=== PATIENT | male | born 1955 | race African-American/Black ===

== ENCOUNTER 2016-07-21 09:24 | Outpatient (CLI) | payer OTHER ==
[2016-07-21 09:41] LABS: BASOPHILS # (AUTO) 0.1 K/uL (0-0.2); EOSINOPHILS # (AUTO) 0.1 K/ul (0.0-0.7); EOSINOPHILS % (AUTO) 0.8 % (0.0-7.0); HEMATOCRIT 38.5 % (42.0-52.0); HEMOGLOBIN 10.6 g/dl (14.0-18.0); IMMATURE GRANULOCYTE % (AUTO) 0.6 % (0.0-5.0); LYMPHOCYTES # (AUTO) 0.3 K/uL (0.60-3.4); LYMPHOCYTES % (AUTO) 3.2 (10.0-50.0); MEAN CORPUSCULAR HEMOGLOBIN 21.5 pg (27.0-31.0); MEAN CORPUSCULAR HGB CONC 27.5 (31.8-35.4); MEAN CORPUSCULAR VOLUME 78.1 fl (80.0-94.0); MONOCYTES % (AUTO) 10.2 (0-10); NEUTROPHILS # (AUTO) 7.9 K/ul (2.0-6.9); NEUTROPHILS % (AUTO) 84.2; PLATELET COUNT 303 10^3/uL (140-440); RED BLOOD COUNT 4.93 10^6/ul (4.70-6.10); WHITE BLOOD COUNT 9.32 K/ul (4.2-10.2)
[2016-07-21 09:50] LABS: ANISOCYTOSIS 2+ (NOT PRESENT)
[2016-07-21 10:23] LABS: ALBUMIN 3.7 g/dL (3.4-5.0); ANION GAP 14.8; BILIRUBIN,TOTAL 0.63 mg/dL (0.00-1.20); BUN/CREATININE RATIO 15.81; CALCIUM 9.4 mg/dL (8.2-10.2); CHOL/HDL RATIO 3.1 (4.5-6.4); CREATININE 1.96 mg/dL (0.60-1.10); FERRITIN 65.1 ng/mL (21.81-274.66); PHOSPHORUS 3.3 mg/dL (2.3-3.7); POTASSIUM 3.8 mmol/L (3.5-5.1); TOTAL PROTEIN 7.4 g/dL (5.8-8.1)
== END 2016-07-21 09:25 | disposition home or self-care (01) ==
LOC: LAB 09:24
PROVIDERS: ATTEND Internal Medicine Nephrology
DX: Z94.0 Kidney transplant status (principal); Z79.899 Other long term (current) drug therapy; D50.8 Other iron deficiency anemias; E78.5 Hyperlipidemia, unspecified; E10.65 Type 1 diabetes mellitus with hyperglycemia; D51.9 Vitamin B12 deficiency anemia, unspecified
CPT/HCPCS: 36415; 80053; 80061; 80197; 82728; 83036; 83540; 83550; 84100; 85008; 85025

== ENCOUNTER 2016-08-18 12:14 | Outpatient (CLI) ==
[2016-08-18 12:38] LABS: BASOPHILS # (AUTO) 0.1 K/uL (0-0.2); BASOPHILS % (AUTO) 0.7 % (0.0-3.0); EOSINOPHILS % (AUTO) 0.1 % (0.0-7.0); HEMATOCRIT 44.9 % (42.0-52.0); IMMATURE GRANULOCYTE % (AUTO) 0.5 % (0.0-5.0); LYMPHOCYTES # (AUTO) 0.3 K/uL (0.60-3.4); LYMPHOCYTES % (AUTO) 3.8 (10.0-50.0); MEAN CORPUSCULAR HEMOGLOBIN 23.8 pg (27.0-31.0); MEAN CORPUSCULAR VOLUME 82.1 fl (80.0-94.0); MONOCYTES # (AUTO) 0.7 K/uL (0.4-2.0); MONOCYTES % (AUTO) 9.1 (0-10); NEUTROPHILS # (AUTO) 6.4 K/ul (2.0-6.9); NEUTROPHILS % (AUTO) 85.8; PLATELET COUNT 225 10^3/uL (140-440); RED BLOOD COUNT 5.47 10^6/ul (4.70-6.10); WHITE BLOOD COUNT 7.46 K/ul (4.2-10.2)
[2016-08-18 12:49] LABS: ANISOCYTOSIS 1+ (NOT PRESENT)
[2016-08-18 12:57] LABS: ALBUMIN 3.7 g/dL (3.4-5.0); ANION GAP 16.5; CALCIUM 8.5 mg/dL (8.2-10.2); PHOSPHORUS 2.3 mg/dL (2.3-3.7); POTASSIUM 3.5 mmol/L (3.5-5.1)
== END 2016-08-18 12:15 | disposition home or self-care (01) ==
LOC: LAB 12:14
PROVIDERS: ATTEND Internal Medicine Nephrology
DX: Z94.0 Kidney transplant status (principal); Z79.899 Other long term (current) drug therapy; D50.8 Other iron deficiency anemias; E78.5 Hyperlipidemia, unspecified; E10.65 Type 1 diabetes mellitus with hyperglycemia; D51.9 Vitamin B12 deficiency anemia, unspecified
CPT/HCPCS: 36415; 80069; 85008; 85025

== ENCOUNTER 2016-09-15 10:53 | Outpatient (CLI) ==
[2016-09-15 11:25] LABS: BASOPHILS # (AUTO) 0.1 K/uL (0-0.2); BASOPHILS % (AUTO) 0.7 % (0.0-3.0); EOSINOPHILS # (AUTO) 0.1 K/ul (0.0-0.7); EOSINOPHILS % (AUTO) 1.4 % (0.0-7.0); HEMATOCRIT 52.7 % (42.0-52.0); HEMOGLOBIN 16.2 g/dl (14.0-18.0); IMMATURE GRANULOCYTE % (AUTO) 0.9 % (0.0-5.0); LYMPHOCYTES # (AUTO) 0.9 K/uL (0.60-3.4); LYMPHOCYTES % (AUTO) 8.3 (10.0-50.0); MEAN CORPUSCULAR HEMOGLOBIN 23.9 pg (27.0-31.0); MEAN CORPUSCULAR HGB CONC 30.7 (31.8-35.4); MEAN CORPUSCULAR VOLUME 77.8 fl (80.0-94.0); MONOCYTES # (AUTO) 1.1 K/uL (0.4-2.0); MONOCYTES % (AUTO) 10.2 (0-10); NEUTROPHILS # (AUTO) 8.1 K/ul (2.0-6.9); NEUTROPHILS % (AUTO) 78.5; PLATELET COUNT 237 10^3/uL (140-440); RED BLOOD COUNT 6.77 10^6/ul (4.70-6.10)
[2016-09-15 11:50] LABS: ALBUMIN 4.2 g/dL (3.4-5.0); ANION GAP 17.8; BUN/CREATININE RATIO 19.75; CREATININE 3.29 mg/dL (0.60-1.10); PHOSPHORUS 4.1 mg/dL (2.3-3.7); POTASSIUM 3.8 mmol/L (3.5-5.1)
[2016-09-15 12:38] LABS: CALCIUM 13.5 mg/dL (8.2-10.2)
== END 2016-09-15 10:54 | disposition home or self-care (01) ==
LOC: LAB 10:53
PROVIDERS: ATTEND Internal Medicine Nephrology
DX: Z94.0 Kidney transplant status (principal); Z79.899 Other long term (current) drug therapy; E78.5 Hyperlipidemia, unspecified; E10.65 Type 1 diabetes mellitus with hyperglycemia; D51.9 Vitamin B12 deficiency anemia, unspecified; D50.8 Other iron deficiency anemias
CPT/HCPCS: 36415; 80069; 85025

== ENCOUNTER 2016-10-14 13:51 | Emergency (ER) ==
[2016-10-14 13:57] VITALS: BP 149/61; TEMP 97.5; BMI 34.7
--- NOTE | 2016-10-14 14:09 | ED.PDOC ---
General ED Provider: Dr. DARLING TODD JR Chief Complaint: Hip Pain/Injury Stated Complaint: patient states his right hip had been hurting and then he went for a walk and it seemed to aggrevate the pain. [ End ]4days 97.5 69 20 94 149/61 9/10 Time Seen by Physician: 14:09 Mode of Arrival: Walk-In Information Source: Patient Exam Limitations: No limitations Primary Care Provider: EDUARDO BRYANT Nursing and Triage Documentation Reviewed and Agree: No Review of Systems - Review Of Systems Constitutional: Reports: No symptoms Eyes: Reports: No symptoms Ears, Nose, Mouth, Throat: Reports: No symptoms Respiratory: Reports: No symptoms Cardiac: Reports: No symptoms GI: Reports: No symptoms : Reports: No symptoms Musculoskeletal: Reports: Joint pain, Muscle pain Skin: Reports: No symptoms Neurological: Reports: No symptoms Endocrine: Reports: No symptoms Hematologic/Lymphatic: Reports: No symptoms All Other Systems: Other Past Medical History - Past Medical History Endocrine: Reports: DM 2 Cardiovascular: Reports: Hypertension, Other ('heart valve issue" regurgitation) Respiratory: Reports: None Hematological: Reports: None Gastrointestinal: Reports: None Genitourinary: Reports: CKD, Other (history of dialysis renal transplant ) Neuro/Psych: Reports: None Musculoskeletal: Reports: None Cancer: Reports: None - Surgical History General Surgical History: Reports: Other - Family History Family History: Reports: Unknown - Social History Smoking Status: Current every day smoker Hx Substance Use: No Alcohol Screening: None Physical Exam - Physical Exam Appearance: Well-appearing Pain Distress: Moderate Neck: Supple Respiratory: Airway patent Cardiovascular: RRR Musculoskeletal: Normal strength, ROM intact, No calf tenderness (tender anterior hip joint and distal arrea consistent with flexor strain not bone problems due to dialysis), Edema (trace) Skin: Warm, Dry, Normal color Neurological: Sensation intact, Motor intact, Reflexes intact, Cranial nerves intact, Alert, Oriented Psychiatric: Affect appropriate, Mood appropriate Critical Care Note - Critical Care Note Total Time (mins): 0 Course - Course Orders, Labs, Meds: Orders Category Date Time Status HIP, RIGHT 2 VIEWS Stat RADS 10/14/16 14:24 Completed Vital Signs: Temp Pulse Resp BP Pulse Ox 10/14/16 13:51 97.5 F L 69 20 149/61 H 94 L Departure - Departure Time of Disposition: 15:17 Disposition: HOME SELF-CARE Discharge Problem: Strain of right hip adductor muscle Qualifiers: Encounter type: initial encounter Qualifier Code: (S76.011A) Strain of muscle, fascia and tendon of right hip, initial encounter Instructions: Hip Sprain (ED) Condition: Good Pt referred to PMD for follow-up: Yes Additional Instructions: gentle range of motion twice a day limit weight on hip for three days recommend NSAIDS for pain 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 Diggs sparingly as needed for pain not controlled by Tylenol recommend increase stool softener if using Diggs Prescriptions: Hydrocodone Bit/Acetaminophen [Diggs 5-325] 1 - 2 tab PO Q6HR PRN #12 tablet PRN Reason: pain Allergies/Adverse Reactions: Allergies No Known Allergies Allergy (Unverified 10/14/16 13:57) Home Medications: Ambulatory Orders Atorvastatin Calcium 80 mg PO BEDTIME 10/14/16 Belatacept [Nulojix] 250 mg IV MONTHLY 10/14/16 Bumetanide 4 tab PO BID 10/14/16 Calcitriol 3 cap PO BID 10/14/16 Cholecalciferol (Vitamin D3) [Vitamin D3] 2,000 unit PO DAILY 10/14/16 Glipizide [Glipizide ER] 5 mg PO DAILY 10/14/16 Hydrocodone Bit/Acetaminophen [Diggs 5-325] 1 - 2 tab PO Q6HR PRN #12 tablet Linagliptin [Tradjenta] 5 mg PO DAILY 10/14/16 Metolazone 2.5 mg PO EVERY OTHER DAY 10/14/16 Metoprolol Tartrate [Lopressor] 25 mg PO BID 10/14/16 Mycophenolate Sodium [Mycophenolic Acid] 2 tab PO BID 10/14/16 Omeprazole [Prilosec] 20 mg PO BIDAC 10/14/16 Prednisone 5 mg PO DAILYWM 10/14/16 Sulfamethoxazole/Trimethoprim [Sulfamethoxazole-Tmp Ds Tablet] 1 each PO BEDTIME 10/14/16
--- NOTE | 2016-10-14 15:12 | DI ---
EXAM: Two views of the right hip HISTORY: New pain for 4 days. COMPARISON: None FINDINGS: There is significant narrowing and mild osteophyte formation of the right hip joint space. Small osteophytes are present. There is no cortical irregularity or displaced fracture identified . Limited views of the osseous structures of the pelvis are unremarkable. There are calcifications of the vas deferens. The soft tissues are normal. IMPRESSION: Degenerative disease of the right hip with no displaced fracture or dislocation.
== END 2016-10-14 15:59 | disposition home or self-care (01) ==
LOC: ED 13:51
DX: S76.011A Strain of muscle, fascia and tendon of right hip, initial encounter (principal); F17.210 Nicotine dependence, cigarettes, uncomplicated
CPT/HCPCS: 99283

== ENCOUNTER 2016-10-16 11:20 | Outpatient (CLI) ==
[2016-10-16 12:17] LABS: ALBUMIN 3.5 g/dL (3.4-5.0); ANION GAP 17.3; BUN/CREATININE RATIO 18.75; CALCIUM 11.5 mg/dL (8.2-10.2); CREATININE 2.24 mg/dL (0.60-1.10); PHOSPHORUS 3.2 mg/dL (2.3-3.7); POTASSIUM 3.3 mmol/L (3.5-5.1)
[2016-10-16 12:18] LABS: BASOPHILS # (AUTO) 0.1 K/uL (0-0.2); BASOPHILS % (AUTO) 0.8 % (0.0-3.0); EOSINOPHILS # (AUTO) 0.1 K/ul (0.0-0.7); EOSINOPHILS % (AUTO) 1.2 % (0.0-7.0); HEMATOCRIT 46.3 % (42.0-52.0); HEMOGLOBIN 14.6 g/dl (14.0-18.0); IMMATURE GRANULOCYTE % (AUTO) 0.8 % (0.0-5.0); LYMPHOCYTES # (AUTO) 0.5 K/uL (0.60-3.4); LYMPHOCYTES % (AUTO) 7.4 (10.0-50.0); MEAN CORPUSCULAR HEMOGLOBIN 24.3 pg (27.0-31.0); MEAN CORPUSCULAR HGB CONC 31.5 (31.8-35.4); MONOCYTES # (AUTO) 0.7 K/uL (0.4-2.0); MONOCYTES % (AUTO) 10.7 (0-10); NEUTROPHILS # (AUTO) 5.3 K/ul (2.0-6.9); NEUTROPHILS % (AUTO) 79.1; PLATELET COUNT 234 10^3/uL (140-440); RED BLOOD COUNT 6.01 10^6/ul (4.70-6.10); WHITE BLOOD COUNT 6.65 K/ul (4.2-10.2)
== END 2016-10-16 11:21 | disposition home or self-care (01) ==
LOC: LAB 11:20
PROVIDERS: ATTEND Internal Medicine Nephrology
DX: Z94.0 Kidney transplant status (principal); Z79.899 Other long term (current) drug therapy; E78.5 Hyperlipidemia, unspecified; E10.65 Type 1 diabetes mellitus with hyperglycemia; D51.9 Vitamin B12 deficiency anemia, unspecified; D50.8 Other iron deficiency anemias
CPT/HCPCS: 36415; 80069; 83970; 85025

== ENCOUNTER 2016-11-14 10:15 | Outpatient (CLI) ==
[2016-11-14 10:40] LABS: BASOPHILS # (AUTO) 0.1 K/uL (0-0.2); BASOPHILS % (AUTO) 0.9 % (0.0-3.0); EOSINOPHILS # (AUTO) 0.1 K/ul (0.0-0.7); EOSINOPHILS % (AUTO) 0.9 % (0.0-7.0); HEMATOCRIT 47.2 % (42.0-52.0); HEMOGLOBIN 14.6 g/dl (14.0-18.0); IMMATURE GRANULOCYTE % (AUTO) 1.6 % (0.0-5.0); LYMPHOCYTES # (AUTO) 0.6 K/uL (0.60-3.4); LYMPHOCYTES % (AUTO) 8.9 (10.0-50.0); MEAN CORPUSCULAR HEMOGLOBIN 23.7 pg (27.0-31.0); MEAN CORPUSCULAR HGB CONC 30.9 (31.8-35.4); MEAN CORPUSCULAR VOLUME 76.5 fl (80.0-94.0); MONOCYTES # (AUTO) 0.7 K/uL (0.4-2.0); MONOCYTES % (AUTO) 10.7 (0-10); NEUTROPHILS # (AUTO) 5.2 K/ul (2.0-6.9); PLATELET COUNT 254 10^3/uL (140-440); RED BLOOD COUNT 6.17 10^6/ul (4.70-6.10); WHITE BLOOD COUNT 6.71 K/ul (4.2-10.2)
[2016-11-14 10:49] LABS: ANISOCYTOSIS 1+ (NOT PRESENT)
[2016-11-14 11:18] LABS: ALBUMIN 3.5 g/dL (3.4-5.0); ANION GAP 14.4; BUN/CREATININE RATIO 18.18; CALCIUM 11.9 mg/dL (8.2-10.2); CREATININE 2.31 mg/dL (0.60-1.10); FERRITIN 127.42 ng/mL (21.81-274.66); PHOSPHORUS 2.8 mg/dL (2.3-3.7); POTASSIUM 3.4 mmol/L (3.5-5.1)
== END 2016-11-14 10:16 ==
LOC: LAB 10:15
PROVIDERS: ATTEND Internal Medicine Nephrology
DX: Z94.0 Kidney transplant status (principal); Z79.899 Other long term (current) drug therapy; E10.65 Type 1 diabetes mellitus with hyperglycemia; E78.5 Hyperlipidemia, unspecified; D50.8 Other iron deficiency anemias; D51.9 Vitamin B12 deficiency anemia, unspecified
CPT/HCPCS: 36415; 80069; 82728; 83540; 83550; 85008; 85025

== ENCOUNTER 2016-12-26 16:52 | Outpatient (CLI) ==
[2016-12-26 17:21] LABS: BASOPHILS % (AUTO) 0.4 % (0.0-3.0); EOSINOPHILS % (AUTO) 0.4 % (0.0-7.0); HEMATOCRIT 30.7 % (42.0-52.0); HEMOGLOBIN 9.5 g/dl (14.0-18.0); IMMATURE GRANULOCYTE % (AUTO) 1.8 % (0.0-5.0); LYMPHOCYTES # (AUTO) 0.5 K/uL (0.60-3.4); LYMPHOCYTES % (AUTO) 5.4 (10.0-50.0); MEAN CORPUSCULAR HEMOGLOBIN 27.1 pg (27.0-31.0); MEAN CORPUSCULAR HGB CONC 30.9 (31.8-35.4); MEAN CORPUSCULAR VOLUME 87.5 fl (80.0-94.0); MONOCYTES # (AUTO) 1.3 K/uL (0.4-2.0); NEUTROPHILS # (AUTO) 7.1 K/ul (2.0-6.9); PLATELET COUNT 207 10^3/uL (140-440); RED BLOOD COUNT 3.51 10^6/ul (4.70-6.10)
[2016-12-26 17:40] LABS: ALBUMIN 2.5 g/dL (3.4-5.0); ALBUMIN/GLOBULIN RATIO 0.68; ANION GAP 18.3; BILIRUBIN,TOTAL 0.71 mg/dL (0.00-1.20); BUN/CREATININE RATIO 11.93; CALCIUM 7.7 mg/dL (8.2-10.2); CREATININE 1.76 mg/dL (0.60-1.10); POTASSIUM 3.3 mmol/L (3.5-5.1); TOTAL PROTEIN 6.2 g/dL (5.8-8.1)
== END 2016-12-26 16:53 | disposition home or self-care (01) ==
LOC: NONPT 16:52
DX: I13.10 Hypertensive heart and chronic kidney disease without heart failure, with stage 1 through stage 4 chronic kidney disease, or unspecified chronic kidney disease (principal); E11.22 Type 2 diabetes mellitus with diabetic chronic kidney disease; N18.9 Chronic kidney disease, unspecified; I35.9 Nonrheumatic aortic valve disorder, unspecified
CPT/HCPCS: 80053; 83880; 85025

== ENCOUNTER 2017-01-14 15:16 | Outpatient (CLI) ==
[2017-01-14 15:41] LABS: ANION GAP 20.6; BUN/CREATININE RATIO 15.35; CALCIUM 10.9 mg/dL (8.2-10.2); CREATININE 2.41 mg/dL (0.60-1.10); POTASSIUM 4.6 mmol/L (3.5-5.1)
== END 2017-01-14 15:17 | disposition home or self-care (01) ==
LOC: NONPT 15:16
PROVIDERS: ATTEND Internal Medicine Nephrology
DX: Z94.0 Kidney transplant status (principal); Z95.1 Presence of aortocoronary bypass graft
CPT/HCPCS: 80048

== ENCOUNTER 2017-02-16 11:49 | Outpatient (CLI) ==
[2017-02-16 12:24] LABS: BASOPHILS # (AUTO) 0.1 K/uL (0-0.2); BASOPHILS % (AUTO) 0.7 % (0.0-3.0); EOSINOPHILS # (AUTO) 0.1 K/ul (0.0-0.7); EOSINOPHILS % (AUTO) 1.7 % (0.0-7.0); HEMOGLOBIN 10.7 g/dl (14.0-18.0); IMMATURE GRANULOCYTE % (AUTO) 0.9 % (0.0-5.0); LYMPHOCYTES # (AUTO) 0.7 K/uL (0.60-3.4); LYMPHOCYTES % (AUTO) 9.3 (10.0-50.0); MEAN CORPUSCULAR HEMOGLOBIN 22.9 pg (27.0-31.0); MEAN CORPUSCULAR HGB CONC 29.7 (31.8-35.4); MEAN CORPUSCULAR VOLUME 76.9 fl (80.0-94.0); MONOCYTES # (AUTO) 0.8 K/uL (0.4-2.0); MONOCYTES % (AUTO) 10.8 (0-10); NEUTROPHILS # (AUTO) 5.7 K/ul (2.0-6.9); NEUTROPHILS % (AUTO) 76.6; PLATELET COUNT 325 10^3/uL (140-440); RED BLOOD COUNT 4.68 10^6/ul (4.70-6.10); WHITE BLOOD COUNT 7.43 K/ul (4.2-10.2)
[2017-02-16 12:38] LABS: ALBUMIN 3.2 g/dL (3.4-5.0); ANION GAP 16.6; BUN/CREATININE RATIO 14.46; CALCIUM 6.3 mg/dL (8.2-10.2); CREATININE 1.59 mg/dL (0.60-1.10); PHOSPHORUS 4.5 mg/dL (2.3-3.7); POTASSIUM 3.6 mmol/L (3.5-5.1)
== END 2017-02-16 11:50 | disposition home or self-care (01) ==
LOC: LAB 11:49
PROVIDERS: ATTEND Internal Medicine Nephrology
DX: Z94.0 Kidney transplant status (principal); Z79.899 Other long term (current) drug therapy; D50.8 Other iron deficiency anemias; E78.5 Hyperlipidemia, unspecified; E10.65 Type 1 diabetes mellitus with hyperglycemia; D51.9 Vitamin B12 deficiency anemia, unspecified
CPT/HCPCS: 36415; 80069; 85025

== ENCOUNTER 2017-02-26 14:14 | Outpatient (RCR) ==
[2017-02-26 15:20] VITALS: TEMP 98.1; BMI 31.4
[2017-03-20 14:04] VITALS: BP 128/58
== END 2017-03-21 ==
LOC: CAR.REHAB 14:14
PROVIDERS: ATTEND Internal Medicine Cardiovascular Disease
DX: Z95.2 Presence of prosthetic heart valve (principal)
CPT/HCPCS: 93798

== ENCOUNTER 2017-03-18 12:12 | Outpatient (CLI) ==
[2017-03-18 12:38] LABS: BASOPHILS # (AUTO) 0.1 K/uL (0-0.2); BASOPHILS % (AUTO) 0.9 % (0.0-3.0); EOSINOPHILS # (AUTO) 0.1 K/ul (0.0-0.7); EOSINOPHILS % (AUTO) 1.3 % (0.0-7.0); HEMATOCRIT 37.5 % (42.0-52.0); IMMATURE GRANULOCYTE % (AUTO) 0.5 % (0.0-5.0); LYMPHOCYTES # (AUTO) 0.6 K/uL (0.60-3.4); LYMPHOCYTES % (AUTO) 7.1 (10.0-50.0); MEAN CORPUSCULAR HEMOGLOBIN 21.3 pg (27.0-31.0); MEAN CORPUSCULAR HGB CONC 29.3 (31.8-35.4); MEAN CORPUSCULAR VOLUME 72.5 fl (80.0-94.0); MONOCYTES # (AUTO) 0.6 K/uL (0.4-2.0); MONOCYTES % (AUTO) 7.7 (0-10); NEUTROPHILS # (AUTO) 6.5 K/ul (2.0-6.9); NEUTROPHILS % (AUTO) 82.5; PLATELET COUNT 310 10^3/uL (140-440); RED BLOOD COUNT 5.17 10^6/ul (4.70-6.10)
[2017-03-18 12:50] LABS: ANISOCYTOSIS 2+ (NOT PRESENT); HYPOCHROMASIA 1+ (NOT PRESENT); MICROCYTOSIS 1+ (NOT PRESENT)
[2017-03-18 12:55] LABS: ALBUMIN 3.2 g/dL (3.4-5.0); ANION GAP 13.8; BUN/CREATININE RATIO 12.72; CALCIUM 8.4 mg/dL (8.2-10.2); CREATININE 1.65 mg/dL (0.60-1.10); POTASSIUM 3.8 mmol/L (3.5-5.1)
[2017-03-19 12:21] LABS: PHOSPHORUS 2.6 mg/dL (2.3-3.7)
== END 2017-03-18 12:13 | disposition home or self-care (01) ==
LOC: LAB 12:12
PROVIDERS: ATTEND Internal Medicine Nephrology
DX: Z94.0 Kidney transplant status (principal); Z79.899 Other long term (current) drug therapy; B25.9 Cytomegaloviral disease, unspecified; D50.8 Other iron deficiency anemias; E78.5 Hyperlipidemia, unspecified; E10.65 Type 1 diabetes mellitus with hyperglycemia; D51.9 Vitamin B12 deficiency anemia, unspecified
CPT/HCPCS: 36415; 80053; 80069; 85008; 85025

== ENCOUNTER 2017-04-22 10:57 | Outpatient (CLI) | payer OTHER ==
[2017-04-22 11:25] LABS: BASOPHILS # (AUTO) 0.1 K/uL (0-0.2); EOSINOPHILS # (AUTO) 0.1 K/ul (0.0-0.7); EOSINOPHILS % (AUTO) 1.7 % (0.0-7.0); HEMATOCRIT 33.4 % (42.0-52.0); HEMOGLOBIN 9.4 g/dl (14.0-18.0); IMMATURE GRANULOCYTE % (AUTO) 0.6 % (0.0-5.0); LYMPHOCYTES # (AUTO) 0.6 K/uL (0.60-3.4); LYMPHOCYTES % (AUTO) 8.2 (10.0-50.0); MEAN CORPUSCULAR HEMOGLOBIN 19.4 pg (27.0-31.0); MEAN CORPUSCULAR HGB CONC 28.1 (31.8-35.4); MEAN CORPUSCULAR VOLUME 68.9 fl (80.0-94.0); MONOCYTES # (AUTO) 0.8 K/uL (0.4-2.0); MONOCYTES % (AUTO) 11.1 (0-10); NEUTROPHILS # (AUTO) 5.4 K/ul (2.0-6.9); NEUTROPHILS % (AUTO) 77.4; PLATELET COUNT 327 10^3/uL (140-440); RED BLOOD COUNT 4.85 10^6/ul (4.70-6.10); WHITE BLOOD COUNT 6.94 K/ul (4.2-10.2)
[2017-04-22 11:49] LABS: ANISOCYTOSIS 2+ (NOT PRESENT); HYPOCHROMASIA 2+ (NOT PRESENT); MICROCYTOSIS 2+ (NOT PRESENT)
[2017-04-22 12:01] LABS: ALBUMIN 3.4 g/dL (3.4-5.0); ALBUMIN/GLOBULIN RATIO 0.77; ANION GAP 13.7; BILIRUBIN,TOTAL 0.64 mg/dL (0.00-1.20); BUN/CREATININE RATIO 12.72; CALCIUM 8.5 mg/dL (8.2-10.2); CHOL/HDL RATIO 3.2 (4.5-6.4); CREATININE 1.65 mg/dL (0.60-1.10); FERRITIN 15.79 ng/mL (21.81-274.66); PHOSPHORUS 3.2 mg/dL (2.3-3.7); POTASSIUM 3.7 mmol/L (3.5-5.1); TOTAL PROTEIN 7.8 g/dL (5.8-8.1)
== END 2017-04-22 10:58 | disposition home or self-care (01) ==
LOC: LAB 10:57
PROVIDERS: ATTEND Internal Medicine Nephrology
DX: Z94.0 Kidney transplant status (principal); Z79.899 Other long term (current) drug therapy; D50.8 Other iron deficiency anemias; E78.5 Hyperlipidemia, unspecified; E10.65 Type 1 diabetes mellitus with hyperglycemia; D51.9 Vitamin B12 deficiency anemia, unspecified
CPT/HCPCS: 36415; 80053; 80061; 80197; 82728; 83036; 83540; 83550; 84100; 85008; 85025

== ENCOUNTER 2017-05-12 11:28 | Outpatient (CLI) ==
[2017-05-12 11:56] LABS: BASOPHILS # (AUTO) 0.1 K/uL (0-0.2); BASOPHILS % (AUTO) 0.5 % (0.0-3.0); EOSINOPHILS # (AUTO) 0.1 K/ul (0.0-0.7); EOSINOPHILS % (AUTO) 1.1 % (0.0-7.0); HEMATOCRIT 34.3 % (42.0-52.0); HEMOGLOBIN 9.7 g/dl (14.0-18.0); IMMATURE GRANULOCYTE % (AUTO) 0.8 % (0.0-5.0); LYMPHOCYTES # (AUTO) 0.6 K/uL (0.60-3.4); LYMPHOCYTES % (AUTO) 6.2 (10.0-50.0); MEAN CORPUSCULAR HEMOGLOBIN 21.8 pg (27.0-31.0); MEAN CORPUSCULAR HGB CONC 28.3 (31.8-35.4); MEAN CORPUSCULAR VOLUME 77.1 fl (80.0-94.0); MONOCYTES # (AUTO) 1.1 K/uL (0.4-2.0); MONOCYTES % (AUTO) 10.5 (0-10); NEUTROPHILS # (AUTO) 8.4 K/ul (2.0-6.9); NEUTROPHILS % (AUTO) 80.9; PLATELET COUNT 530 10^3/uL (140-440); RED BLOOD COUNT 4.45 10^6/ul (4.70-6.10); WHITE BLOOD COUNT 10.34 K/ul (4.2-10.2)
[2017-05-12 12:09] LABS: ANISOCYTOSIS 2+ (NOT PRESENT); HYPOCHROMASIA 1+ (NOT PRESENT)
[2017-05-12 12:10] LABS: MICROCYTOSIS 1+ (NOT PRESENT); OVALOCYTES 1+ (NOT PRESENT); STOMATOCYTES 1+ (NOT PRESENT)
[2017-05-12 12:18] LABS: ANION GAP 10.6; BUN/CREATININE RATIO 10.96; CALCIUM 7.7 mg/dL (8.2-10.2); CREATININE 1.55 mg/dL (0.60-1.10); PHOSPHORUS 2.9 mg/dL (2.3-3.7); POTASSIUM 3.6 mmol/L (3.5-5.1)
== END 2017-05-12 11:29 | disposition home or self-care (01) ==
LOC: LAB 11:28
PROVIDERS: ATTEND Internal Medicine Nephrology
DX: Z94.0 Kidney transplant status (principal); Z79.899 Other long term (current) drug therapy; D50.8 Other iron deficiency anemias; E78.5 Hyperlipidemia, unspecified; E10.65 Type 1 diabetes mellitus with hyperglycemia; D51.9 Vitamin B12 deficiency anemia, unspecified
CPT/HCPCS: 36415; 80069; 85008; 85025

== ENCOUNTER 2017-06-02 07:46 | Outpatient (CLI) ==
[2017-06-02 08:49] LABS: MEAN CORPUSCULAR HEMOGLOBIN 22.3 pg (27.0-31.0); MEAN CORPUSCULAR HGB CONC 28.1 (31.8-35.4); MEAN CORPUSCULAR VOLUME 79.4 fl (80.0-94.0); RED BLOOD COUNT 4.03 10^6/ul (4.70-6.10); WHITE BLOOD COUNT 8.67 K/ul (4.2-10.2)
[2017-06-02 09:28] LABS: ALBUMIN 3.3 g/dL (3.4-5.0); ALBUMIN/GLOBULIN RATIO 0.8; ANION GAP 15.4; BILIRUBIN,TOTAL 0.58 mg/dL (0.00-1.20); BUN/CREATININE RATIO 13.96; CALCIUM 8.5 mg/dL (8.2-10.2); CHOL/HDL RATIO 3.6 (4.5-6.4); CREATININE 1.79 mg/dL (0.60-1.10); POTASSIUM 3.4 mmol/L (3.5-5.1); TOTAL PROTEIN 7.4 g/dL (5.8-8.1)
== END 2017-06-02 07:47 | disposition home or self-care (01) ==
LOC: LAB 07:46
DX: E03.9 Hypothyroidism, unspecified (principal); E11.9 Type 2 diabetes mellitus without complications; Z02.83 Encounter for blood-alcohol and blood-drug test; Z87.19 Personal history of other diseases of the digestive system; G89.29 Other chronic pain
CPT/HCPCS: 36415; 80053; 80061; 83036; 84436; 84443; 85027

== ENCOUNTER 2017-06-19 12:40 | Outpatient (CLI) | END 2017-06-19 12:41 | disposition home or self-care (01) | LOC: LAB 12:40 | PROVIDERS: ATTEND Internal Medicine Nephrology | DX: Z94.0 Kidney transplant status (principal); Z79.899 Other long term (current) drug therapy; D50.8 Other iron deficiency anemias; K62.5 Hemorrhage of anus and rectum; E78.5 Hyperlipidemia, unspecified; E10.65 Type 1 diabetes mellitus with hyperglycemia; D51.9 Vitamin B12 deficiency anemia, unspecified | CPT/HCPCS: 36415; 80069; 85008; 85025 ==

== ENCOUNTER 2017-06-30 15:00 | Outpatient (RCR) | payer OTHER ==
--- NOTE | 2017-06-24 16:51 | RS.OPPTEV2 ---
Date of Note: 06/24/17 Visit #: 1 Date of Evaluation: 06/24/17 Payer Source: MEDICARE Surgery Performed?: Yes (L THR 04/27/17) Treatment Diagnosis: OA, s/p LTHR History of Condition/Mechanism of Injury:: pt suffered with OA B hips. pt had L THR on 04/27/17 and plans to have R THR in a few months when has enough time off work to assist him. Prior Level of Function.....Patient was independent with: ADL's, Ambulation/ Mobility, Community Integration/Access Functional Limitations: Self Care, ADL's, Lifting, Carrying, Standing, Bending, Squatting, Ambulation, Community Access/Integration Current Subjective/complaints:: pt states he is worried about increasing pain in R hip while doing PT. pt states he can't have 2nd surgery until has enough time saved up. pt states he doesn't really want to do PT now, but MD wants him to so he will try. Treatment Side (optional): Left *Precautions: THR precautions Medical History Medical History: Hypertension, Diabetes, Arthritis Surgical History: Hip Replacement Surgical History Comments:: kidney transplant, heart valve replacement. Smoking Status: Former smoker Hx Home Medications: sulfamethoxazole-trimethoprim, metoprolol succinate, bumetanide, glipizide, potassium chloride, aspirin, prednisone, atorvastatin, pantoprazole, mycophenolic acid, levothyroxine, tradjenta, belatacept, calcitrol Patient's Goals: to walk a little better until have second surgery. Pain Assessment - Pain Description Pain Location: B hips Pain Description: Sharp, Aching Current Pain Intensity: 0 at rest, increases with standing and amb. Functional Outcome Measure LE Functional Scale: 11 (86%) - G Codes & Severity Modifier G Codes & Modifier: mobility current CL. mobility goal CJ Source of G Code score: LE functional scale and functional mobility evaluation. pt presented at CL level through PT assessment, however scored himself CM on scale. Observation - Observation Posture: Forward Head, Rounded Shoulders, Decreased Lumbar Lordosis Gait - Gait Pattern General Gait Pattern Observation: Crouched Gait, Uneven Janay, Hips Posterior to JEREMY, Decrease Stride Lngth (R), Decrease Stride Lngth (L) Gait Comments: pt amb with decreased step length, flexed posture, antalgic gait due to pain General Range of Motion: BUE WFL's Muscle Strength: BUE 5/5. see hip eval. BLE knee flex/ext 4+/5, ankle DF/PF 4+ /5 - Left Hip ROM Left Hip ROM Limitations: Soft Tissue Tightness, Pain, Muscle Weakness Comments: L hip add limited due to surgery, - Right Hip ROM Right Hip ROM Limitations: Pain, Muscle Weakness Comments: Rhip WFL's with pain - Left Hip Strength Left Hip Flexion: 3 Fair Left Hip Extension: 3+ Fair+ Left Hip Abduction: 3+ Fair+ Left Hip Adduction: 3- Fair- - Right Hip Strength Right Hip Flexion: 3+ Fair+ Right Hip Extension: 4- Good- Right Hip Abduction: 4- Good- Right Hip Adduction: 4- Good- Palpation Palpation Findings: Tenderness, Muscle Guarding Comments:: L hip Sensation - Sensation Right Upper Extremity: Intact/Normal Left Upper Extremity: Intact/Normal Right Lower Extremity: Impaired Left Lower Extremity: Impaired Sensation Description: Numbness Comments: numbness and tingling BLE Balance - Sitting Balance Static Sitting Balance: Good Dynamic Sitting Balance: Good - Standing Balance Static Standing Balance: Fair Dynamic Standing Balance: Poor - Comments Balance Assessment Comments: TUG 42 secs Interventions - Exercise/Activities/Manual Therapy Exercises/Activities: pt performed BLE QS, GS, LAQ, seated hip flex Manual Therapy: n/a HOME EXERCISE PROGRAM: pt given written HEP including QS, GS, seated hip flex, LAQ - Charges Timed Code Treatment Minutes: 55 Total Treatment Time: 60 Procedures billed for this date of service:: eval med Assessment Assessment: pt presents with pain B hips, s/p LTHR. pt with decreased strength, balance as well as endurance and gait ability. Feel pt would benefit from skilled PT for therex for LE strengthening, balance as well as gait training progressing to 2 canes and to without device if appropriate to improve functional mobility and restore more normal gait pattern. Patient Education: Education of diagnosis, Home Exercise Program, Home Safety, Activity Modification, Education of Plan of Care Rehab Potential: Good Short Term Goals Goal #1: pt amb in dept with 2 canes with CGA with no LOB Goal to be met by: 07/08/17 Goal #2: pt with improved posture and gait sequencing Goal to be met by: 07/08/17 Goal #3: pt demonstrate improved strength BLE 4- to 4/5 with decreased pain Goal to be met by: 07/08/17 Service Consultant Goals Goal #1: pt amb functional distances with least AD with no LOB improved sequencing. Goal to be met by: 07/24/17 Goal #2: pt demonstrate improved dyn stand balance as noted by TUG <35 secs Goal to be met by: 07/24/17 Goal #3: pt independent with HEP Goal to be met by: 07/24/17 Goal #4: pt with improved LE functional scale score to >40 Goal to be met by: 07/24/17 Plan - Treatment to be Provided Procedures: Therapeutic Exercises, Therapeutic Activity, Gait Training, Neuromuscular Rehab, Manual Therapy, Patient Education Modalities: Electrical Stimulation, Class IV Laser, Cryotherapy, Hot Packs - Treatment Plan Frequency: 2 X week Duration: 4 weeks ORDER # VISITS AND/OR THROUGH DATE: 07/24/17 - Treatment Code (1) Aftercare following hip joint replacement surgery Code(s): Z47.1 - AFTERCARE FOLLOWING JOINT REPLACEMENT SURGERY; Z96.649 - PRESENCE OF UNSPECIFIED ARTIFICIAL HIP JOINT Qualifiers: Laterality: left Qualified Code(s): Z47.1 - Aftercare following joint replacement surgery; Z96.642 - Presence of left artificial hip joint; Z96.642 - Presence of left artificial hip joint (2) Osteoarthritis Code(s): M19.90 - UNSPECIFIED OSTEOARTHRITIS, UNSPECIFIED SITE Qualifiers: Osteoarthritis location: unspecified site Osteoarthritis type: primary Qualified Code(s): M19.91 - Primary osteoarthritis, unspecified site
--- NOTE | 2017-06-26 13:29 | RS.CXNS ---
Date of scheduled appointment: 06/26/17 Type: Cancel Reason for Cancel/NS: Called ,sick today.
--- NOTE | 2017-07-02 13:38 | RS.CXNS ---
Date of scheduled appointment: 07/02/17 Type: Cancel Reason for Cancel/NS: expecting wintery weather
--- NOTE | 2017-07-20 10:37 | RS.OPPTDN ---
Subjective Date of Note: 06/30/17 Visit #: 2 Date of Evaluation: 06/24/17 Payer Source: MEDICARE Treatment Diagnosis: OA, s/p LTHR Current Subjective/complaints:: Patient reports he is not able to bring his L leg "in" very well. Says it always lays outward and feels it cannot go any further. He says he does not want to do much therapy because his has to miss so much work. He adds he is performing some HEP. States he is walking very short distances without his walker at home. *Precautions: THR precautions Interventions - Exercise/Activities/Manual Therapy Exercises/Activities: Supine: PROM of the L knee and hip minding any precautions. Passive heel cord stretching. He performs: QS, SAQ, SLR (2x5 AAROM), hip abd, DF with red tband, heel slides all 2x10 reps. Gt training using RW with safety cues around the dept 40' x 2. Patient shows good safety and steady with transferring and guiding/turning RW. Education on diagnosis and reviewed HEP. Total minutes of Exercise: 38 Manual Therapy: n/a HOME EXERCISE PROGRAM: pt given written HEP including QS, GS, seated hip flex, LAQ - Charges Timed Code Treatment Minutes: 38 Total Treatment Time: 38 Procedures billed for this date of service:: ex2, gt Assessment: Patient experiencing moderate pain to the L anterior thigh with tightness at the hamstring and calf along with L hip ER slightly with amb and difficulty with actively performing hip ADD/IR. Patient Education: Education of diagnosis, Home Exercise Program Patient demonstrates compliance with HEP?: Yes Short Term Goals Goal #1: pt amb in dept with 2 canes with CGA with no LOB Goal to be met by: 07/08/17 Goal #2: pt with improved posture and gait sequencing Goal to be met by: 07/08/17 Goal #3: pt demonstrate improved strength BLE 4- to 4/5 with decreased pain Goal to be met by: 07/08/17 Jail Goals Goal #1: pt amb functional distances with least AD with no LOB improved sequencing. Goal to be met by: 07/24/17 Goal #2: pt demonstrate improved dyn stand balance as noted by TUG <35 secs Goal to be met by: 07/24/17 Goal #3: pt independent with HEP Goal to be met by: 07/24/17 Goal #4: pt with improved LE functional scale score to >40 Goal to be met by: 07/24/17 Plan PLAN OF CARE EXPIRES ON:: 07/24/17 ORDER # VISITS AND/OR THROUGH DATE: 07/24/17 PLAN: Patient to continue to receive strengthening and gait education
--- NOTE | 2017-07-20 11:49 | RS.OPPTDC ---
Date of Discharge: 06/30/17 Date of Evaluation: 06/24/17 Number of Visits: 2 Treatment Diagnosis: OA, s/p LTHR Current Level of Function: pt amb short distances independently with rwx. pt has HEP Current Complaints/Gains: pt only seen for eval and 1 visit with 2 cancellation and did not contact us to complete his POC. Pain Assessment - Pain Description Pain Location: L hip Pain Description: Aching Other Comments regarding Pain:: pt reports pain with ROM. pt would not rate pain. States hurts with amb and ROM Functional Outcome Measure LE Functional Scale: 11 (as per eval) - G Codes & Severity Modifier G Codes & Modifier: mobility dc CL. mobility goal CJ Source of G Code score: LE functional scale Observation - Observation Posture: Forward Head, Rounded Shoulders Gait - Gait Pattern General Gait Pattern Observation: Antalgic Gait, Crouched Gait, Decrease Stride Lngth (L) Gait Comments: pt continues to amb with flexed posture and antalgic gait - Heat/Cryotherapy Treatment: Cryotherapy (L hip) Interventions - Exercise/Activities/Manual Therapy Exercises/Activities: pt was educated on LLE ex per THR protocol Manual Therapy: n/a HOME EXERCISE PROGRAM: pt given written HEP including QS, GS, seated hip flex, LAQ - Charges Timed Code Treatment Minutes: n/a Total Treatment Time: n/a Procedures billed for this date of service:: n/a Assessment Assessment: pt did not meet goals due to only seen for eval and 1 visit. pt cancelled x 2 and then did not call to complete POC Patient Education: Home Exercise Program, Education of Plan of Care Rehab Potential: Good Short Term Goals Goal #1: pt amb in dept with 2 canes with CGA with no LOB Goal to be met by: 07/08/17 Progress towards Goal:: Not Met Goal #2: pt with improved posture and gait sequencing Goal to be met by: 07/08/17 Progress towards Goal:: Not Met Goal #3: pt demonstrate improved strength BLE 4- to 4/5 with decreased pain Goal to be met by: 07/08/17 Progress towards Goal:: Not Met Residential Goals Goal #1: pt amb functional distances with least AD with no LOB improved sequencing. Goal to be met by: 07/24/17 Progress towards goal: Not Met Goal #2: pt demonstrate improved dyn stand balance as noted by TUG <35 secs Goal to be met by: 07/24/17 Progress towards goal: Not Met Goal #3: pt independent with HEP Goal to be met by: 07/24/17 Progress towards goal: Not Met Goal #4: pt with improved LE functional scale score to >40 Goal to be met by: 07/24/17 Progress towards goal: Not Met Plan Reason for Discharge:: Poor Attendance/Compliance (pt cancelled x 2 only seen for eval and 1 visit. did not contact PT to complete POC)
== END 2017-07-22 ==
PROVIDERS: ATTEND Orthopaedic Surgery
DX: Z47.1 Aftercare following joint replacement surgery (principal); Z96.642 Presence of left artificial hip joint

== ENCOUNTER 2017-07-21 12:53 | Outpatient (CLI) | END 2017-07-21 12:54 | disposition home or self-care (01) | LOC: LAB 12:53 | PROVIDERS: ATTEND Internal Medicine Nephrology | DX: Z94.0 Kidney transplant status (principal); Z79.899 Other long term (current) drug therapy; D50.8 Other iron deficiency anemias; E78.5 Hyperlipidemia, unspecified; E10.65 Type 1 diabetes mellitus with hyperglycemia; D51.9 Vitamin B12 deficiency anemia, unspecified | CPT/HCPCS: 36415; 80053; 80061; 80197; 82728; 83036; 83540; 83550; 84100; 85007; 85008; 85025 ==

== ENCOUNTER 2017-08-19 14:23 | Outpatient (CLI) | payer OTHER | END 2017-08-19 14:24 | disposition home or self-care (01) | LOC: LAB 14:23 | PROVIDERS: ATTEND Internal Medicine Nephrology | DX: Z94.0 Kidney transplant status (principal); Z79.899 Other long term (current) drug therapy; D50.8 Other iron deficiency anemias; E78.5 Hyperlipidemia, unspecified; E10.65 Type 1 diabetes mellitus with hyperglycemia; D51.9 Vitamin B12 deficiency anemia, unspecified | CPT/HCPCS: 36415; 80069; 85025 ==

== ENCOUNTER 2017-09-15 13:15 | Outpatient (CLI) | END 2017-09-15 13:16 | disposition home or self-care (01) | LOC: LAB 13:15 | PROVIDERS: ATTEND Internal Medicine Nephrology | DX: Z94.0 Kidney transplant status (principal); Z79.899 Other long term (current) drug therapy; D50.8 Other iron deficiency anemias; E83.41 Hypermagnesemia; E78.5 Hyperlipidemia, unspecified; E10.65 Type 1 diabetes mellitus with hyperglycemia; D51.9 Vitamin B12 deficiency anemia, unspecified | CPT/HCPCS: 36415; 80053; 82607; 82728; 82746; 83540; 83550; 83735; 84100; 85025 ==

== ENCOUNTER 2017-10-12 11:43 | Outpatient (CLI) | END 2017-10-12 11:44 | disposition home or self-care (01) | LOC: LAB 11:43 | PROVIDERS: ATTEND Internal Medicine Nephrology | DX: Z94.0 Kidney transplant status (principal); Z79.899 Other long term (current) drug therapy; D50.8 Other iron deficiency anemias; D51.9 Vitamin B12 deficiency anemia, unspecified; E10.65 Type 1 diabetes mellitus with hyperglycemia; E78.5 Hyperlipidemia, unspecified | CPT/HCPCS: 36415; 80053; 80061; 80197; 82728; 83036; 83540; 83550; 84100; 85008; 85025 ==

== ENCOUNTER 2017-11-27 11:34 | Outpatient (CLI) | END 2017-11-27 11:35 | disposition home or self-care (01) | LOC: LAB 11:34 | PROVIDERS: ATTEND Internal Medicine Nephrology | DX: Z94.0 Kidney transplant status (principal); Z79.899 Other long term (current) drug therapy; D50.8 Other iron deficiency anemias; E78.5 Hyperlipidemia, unspecified; E10.65 Type 1 diabetes mellitus with hyperglycemia; D51.9 Vitamin B12 deficiency anemia, unspecified | CPT/HCPCS: 36415; 80069; 85007; 85008; 85025 ==

== ENCOUNTER 2017-12-14 13:20 | Outpatient (CLI) | payer OTHER | END 2017-12-14 13:21 | disposition home or self-care (01) | LOC: LAB 13:20 | PROVIDERS: ATTEND Internal Medicine Nephrology | DX: Z94.0 Kidney transplant status (principal); Z79.899 Other long term (current) drug therapy; D50.8 Other iron deficiency anemias; E78.5 Hyperlipidemia, unspecified; E10.65 Type 1 diabetes mellitus with hyperglycemia; D51.9 Vitamin B12 deficiency anemia, unspecified | CPT/HCPCS: 36415; 80069; 85008; 85025 ==

== ENCOUNTER 2018-01-18 13:30 | Outpatient (CLI) | END 2018-01-18 13:31 | disposition home or self-care (01) | LOC: LAB 13:30 | PROVIDERS: ATTEND Internal Medicine Nephrology | DX: Z94.0 Kidney transplant status (principal); Z79.899 Other long term (current) drug therapy; D50.8 Other iron deficiency anemias; E78.5 Hyperlipidemia, unspecified; E10.65 Type 1 diabetes mellitus with hyperglycemia; D51.9 Vitamin B12 deficiency anemia, unspecified | CPT/HCPCS: 36415; 80053; 80061; 80069; 80197; 82728; 83036; 83540; 83550; 84100; 85008; 85025 ==

== ENCOUNTER 2018-02-09 12:18 | Outpatient (CLI) | END 2018-02-09 12:19 | disposition home or self-care (01) | LOC: LAB 12:18 | PROVIDERS: ATTEND Internal Medicine Nephrology | DX: Z94.0 Kidney transplant status (principal); Z79.899 Other long term (current) drug therapy; N18.9 Chronic kidney disease, unspecified; D63.1 Anemia in chronic kidney disease; R60.9 Edema, unspecified; R06.02 Shortness of breath; R09.89 Other specified symptoms and signs involving the circulatory and respiratory systems; D51.9 Vitamin B12 deficiency anemia, unspecified; E10.65 Type 1 diabetes mellitus with hyperglycemia; E78.5 Hyperlipidemia, unspecified | CPT/HCPCS: 36415; 80069; 85025 ==

== ENCOUNTER 2018-02-24 11:54 | Outpatient (CLI) | payer OTHER | END 2018-02-24 11:55 | disposition home or self-care (01) | LOC: LAB 11:54 | PROVIDERS: ATTEND Internal Medicine Nephrology | DX: Z94.0 Kidney transplant status (principal) | CPT/HCPCS: 36415; 80069; 80197; 85025 ==

== ENCOUNTER 2018-03-16 08:31 | Outpatient (CLI) | END 2018-03-16 08:32 | disposition home or self-care (01) | LOC: LAB 08:31 | PROVIDERS: ATTEND Internal Medicine Nephrology | DX: Z94.0 Kidney transplant status (principal); Z79.899 Other long term (current) drug therapy; D50.8 Other iron deficiency anemias; E78.5 Hyperlipidemia, unspecified; E10.65 Type 1 diabetes mellitus with hyperglycemia; D51.9 Vitamin B12 deficiency anemia, unspecified | CPT/HCPCS: 36415; 80069; 85025 ==

== ENCOUNTER 2018-04-20 12:01 | Outpatient (CLI) | END 2018-04-20 12:02 | disposition home or self-care (01) | LOC: LAB 12:01 | PROVIDERS: ATTEND Internal Medicine Nephrology | DX: Z94.0 Kidney transplant status (principal); Z79.899 Other long term (current) drug therapy; D50.8 Other iron deficiency anemias; E78.5 Hyperlipidemia, unspecified; E10.65 Type 1 diabetes mellitus with hyperglycemia; D51.9 Vitamin B12 deficiency anemia, unspecified | CPT/HCPCS: 36415; 80053; 80061; 82728; 83036; 83540; 83550; 84100; 85025 ==

== ENCOUNTER 2018-06-18 12:06 | Outpatient (CLI) | END 2018-06-18 12:07 | disposition home or self-care (01) | LOC: LAB 12:06 | PROVIDERS: ATTEND Internal Medicine Nephrology | DX: Z94.0 Kidney transplant status (principal); Z79.899 Other long term (current) drug therapy; D50.8 Other iron deficiency anemias; E78.5 Hyperlipidemia, unspecified; E10.65 Type 1 diabetes mellitus with hyperglycemia; D51.9 Vitamin B12 deficiency anemia, unspecified | CPT/HCPCS: 36415; 80069; 85025 ==

== ENCOUNTER 2018-07-07 16:18 | Outpatient (CLI) | END 2018-07-07 16:19 | disposition home or self-care (01) | LOC: LAB 16:18 | PROVIDERS: ATTEND Internal Medicine Nephrology | DX: Z94.0 Kidney transplant status (principal) | CPT/HCPCS: 36415; 80069; 85008; 85025 ==

== ENCOUNTER 2018-07-23 10:50 | Outpatient (CLI) | payer OTHER | END 2018-07-23 10:51 | disposition home or self-care (01) | LOC: LAB 10:50 | PROVIDERS: ATTEND Internal Medicine Nephrology | DX: Z94.0 Kidney transplant status (principal); Z79.899 Other long term (current) drug therapy; D50.8 Other iron deficiency anemias; E78.5 Hyperlipidemia, unspecified; E10.65 Type 1 diabetes mellitus with hyperglycemia; D51.9 Vitamin B12 deficiency anemia, unspecified | CPT/HCPCS: 36415; 80053; 80061; 82728; 83036; 83540; 83550; 85008; 85025 ==

== ENCOUNTER 2018-08-17 11:05 | Outpatient (CLI) | END 2018-08-17 11:06 | disposition home or self-care (01) | LOC: LAB 11:05 | PROVIDERS: ATTEND Internal Medicine Nephrology | DX: Z94.0 Kidney transplant status (principal); Z79.899 Other long term (current) drug therapy; D50.8 Other iron deficiency anemias; E78.5 Hyperlipidemia, unspecified; E10.65 Type 1 diabetes mellitus with hyperglycemia; D51.9 Vitamin B12 deficiency anemia, unspecified | CPT/HCPCS: 36415; 80069; 85025 ==

== ENCOUNTER 2018-09-17 11:17 | Outpatient (CLI) | END 2018-09-17 11:18 | disposition home or self-care (01) | LOC: LAB 11:17 | PROVIDERS: ATTEND Internal Medicine Nephrology | DX: Z94.0 Kidney transplant status (principal); D89.9 Disorder involving the immune mechanism, unspecified | CPT/HCPCS: 36415; 80069; 85025 ==

== ENCOUNTER 2018-11-05 12:25 | Outpatient (CLI) | payer OTHER | END 2018-11-05 12:26 | disposition home or self-care (01) | LOC: LAB 12:25 | PROVIDERS: ATTEND Internal Medicine Nephrology | DX: Z94.0 Kidney transplant status (principal); E10.29 Type 1 diabetes mellitus with other diabetic kidney complication; D50.9 Iron deficiency anemia, unspecified; D89.9 Disorder involving the immune mechanism, unspecified; E78.5 Hyperlipidemia, unspecified; E10.65 Type 1 diabetes mellitus with hyperglycemia | CPT/HCPCS: 36415; 80053; 80061; 82728; 83036; 83540; 83550; 84100; 85025 ==

== ENCOUNTER 2018-11-19 14:02 | Outpatient (CLI) | payer OTHER | END 2018-11-19 14:03 | disposition home or self-care (01) | LOC: LAB 14:02 | PROVIDERS: ATTEND Internal Medicine Nephrology | DX: R79.89 Other specified abnormal findings of blood chemistry (principal) | CPT/HCPCS: 36415; 80069 ==

== ENCOUNTER 2019-02-18 12:50 | Outpatient (CLI) | payer OTHER | END 2019-02-18 12:51 | disposition home or self-care (01) | LOC: LAB 12:50 | PROVIDERS: ATTEND Internal Medicine Nephrology | DX: Z94.0 Kidney transplant status (principal); D89.9 Disorder involving the immune mechanism, unspecified | CPT/HCPCS: 36415; 80069; 85025 ==